=== PATIENT | female | born 1990 | race Hispanic/Latino ===

== ENCOUNTER 2019-12-03 04:41 | Inpatient (IN) | payer OTHER ==
[2019-12-03] MEDS ORDERED: Penicillin G Potassium 5 MILL.UNITS VIAL ONE (04:59)
[2019-12-03 05:23] VITALS: BMI 25.0
[2019-12-03] MEDS ORDERED: Acetaminophen 500 MG TAB PO PRN (05:28)
[2019-12-03] MEDS ORDERED: Ondansetron PF 4 MG/2 ML Vial IVP PRN ×2 (05:28→06:21)
[2019-12-03] MEDS ORDERED: Promethazine HCl 25 MG/ML VIAL IM PRN ×2 (05:28→06:21)
[2019-12-03] MEDS ORDERED: hydrALAZINE 20 MG/ML VIAL SLOW IVP PRN ×2 (05:28→12:37)
[2019-12-03] MEDS ORDERED: NS / Oxytocin 40 units/1000ml 1,000 ML IV PRN (05:28)
[2019-12-03] MEDS ORDERED: Butorphanol Tartrate 1 MG/ML VIAL SLOW IVP PRN (05:28)
[2019-12-03] MEDS ORDERED: Ibuprofen 800 MG TAB PO PRN (05:28)
[2019-12-03] MEDS ORDERED: Lidocaine 1% (PF) 30 ML VIAL SC PRN (05:28)
[2019-12-03] MEDS ORDERED: Misoprostol 200 MCG TAB PR PRN (05:28)
[2019-12-03] MEDS ORDERED: NS w/ Oxytocin 10 units 500 ML IV SCH (05:30)
[2019-12-03] MEDS ORDERED: Lactated Ringer's 1,000 ML IV SCH (05:30)
[2019-12-03] MEDS ORDERED: Fentanyl 4 mcg/Bup 0.1% Cadd 100 ML ONE (05:39)
[2019-12-03 05:40] LABS: Hemoglobin 11.9 g/dL (12.0-16.0); Mean Corpuscular HGB CONC 33.2 g/dL (32.0-36.0); Mean Corpuscular Hemoglobin 26.9 pg (27.0-31.0); Mean Corpuscular Volume 81.1 fL (78.0-98.0); Mean Platelet Volume 9.6 fL (7.4-10.4); Platelet Count 224 thou/uL (130-400); RBC Distribution Width 13.7 % (11.5-14.5); Red Blood Cell (RBC) Count 4.44 mill/uL (4.20-5.40); White Blood Cell (WBC) Count 12.1 thou/uL (4.8-10.8)
[2019-12-03] MEDS ORDERED: Fentanyl 100 MCG/2 ML VIAL ONE (05:40)
[2019-12-03] MEDS ORDERED: CEFAZOLIN 2 GM in Premix Bag 1 BAG IVPB SCH (05:45)
[2019-12-03 06:09] LABS: HIV (1/2) Antibody/Antigen Non-Reactive (NonReactive); HIV 1/2 INDEX 0.13 S/CO (<1.00)
[2019-12-03] MEDS ORDERED: EPHEDRINE 25 MG/5 ML SYRINGE SLOW IVP PRN (06:21)
[2019-12-03] MEDS ORDERED: Lactated Ringer's 500 ML IV PRN (06:21)
[2019-12-03] MEDS ORDERED: Naloxone HCl 0.4 mg/ml Vial IVP PRN ×2 (06:21)
[2019-12-03] MEDS ORDERED: diphenhydrAMINE 50 MG/ML VIAL IVP PRN (06:21)
[2019-12-03] MEDS ORDERED: Fentanyl 4 mcg/Bupivacaine 0.1% Cassette 100 ML EPIDURAL SCH (06:30)
[2019-12-03] MEDS ORDERED: Communication Order-Pharmacy FS SCH (06:30)
[2019-12-03 06:52] LABS: HBSAg Index 0.17 S/CO (0-0.99); Hep B Surf Ag Non-Reactive S/CO (NonReactive)
[2019-12-03 08:28] LABS: Syphilis Antibody Nonreactive (Nonreactive); Syphilis Antibody Index 0.02 S/CO (<1.00 Non-Reactive)
--- NOTE | 2019-12-03 09:29 | PDOC.OPDEL ---
OB Operative/Delivery Note Delivery Dr/Surgeon: Ozzy (resident), Deanna (attending, present during entire delivery) Pre-Delivery Diagnosis: active labor Procedure/Post Delivery Dx: spontaneous vaginal delivery Weeks gestation: 40 (40.1 wga) Anesthesia: epidural - Additional Findings/Plan Placenta delivered: spontaneous Repaired Obstetrical Laceration: 2nd degree Compilations/Other Findings: Procedure: Spontaneous Vaginal Delivery Anesthesia: epidural QBL: 85 ml Pre-op Diagnosis: 1. Term intrauterine in labor 2. Hx of episiotomy at last delivery Post-op Diagnosis: 1. Term intrauterine , delivered 2. Small 2nd degree perineal laceration, repaired 2. same as above Indications: A 29 y/o female presents in active labor Delivery Note: This is 29yo F @ 40.1 wks who delivered a viable F infant at 0901. Following an uneventful antepartum course, a vigorous female was delivered over an intact perineum in the occipitoanterior position. Anterior shoulder and then remainder of the body delivered. No nuchal cord. The head was held down; mouth and nares were bulb suctioned. Cord clamped after delayed cord clamping. Cord cut and cord blood collected. Placenta delivered intact in the Green presentation with a 3 vessel cord noted. Fundal massage was performed, and the fundus was firm. The cervix and vagina were inspected. A small 2nd degree perineal laceration was noted and repaired with 2-0 chromic in the usual fashion. Hemostatis and good approximation was noted. Infant went to mom for [id number] in good condition. Apgars were 9/9 at 1 & 5 minutes, respectively. Patient tolerated delivery well and went to after routine recovery/care. Post delivery plan: routine recovery Addendum - Attending - Attending Attestation Date/Time: 12/03/191918 I personally evaluated the patient and discussed the management with Dr. Preciado I agree with the History, Examination, Assessment and Plan documented above with any addition or exceptions noted below. I was present and supervising for the 2nd and third stages of labor.
[2019-12-03] MEDS ORDERED: Bupivacaine/Epinephrine 0.25% 30 ML VIAL ONE (09:38)
--- NOTE | 2019-12-03 10:11 | PDOC.LDHP ---
Labor and Delivery H&P Chief complaint: contractions, loss of fluid HPI: [address] Martin presents at 40.2 weeks with complaints of regular contractions and loss of fluid. States this occurred early this morning [employer]UD[employer]. Denies any complications with this . Has had 1 previous vaginal delivery that was uncomplicated in 2017. Current gestational age (weeks): 40 (2) Grav: 2 Para: 1 OB History Details: in 2017 Current complications: none Current medications: pre- vitamins Previous surgical history: other (oral surgery) Allergies/Adverse Reactions: Allergies Allergy/AdvReac Type Severity Reaction Status Date / Time penicillin G Allergy Intermediate Hives Verified 12/03/19 05:15 Social history: none - Physical Exam Vital signs reviewed and normal: yes General: breathing through contractions Heart: RRR Lungs: nonlabored breathing Abdomen: gravid Extremeties: no edema FHT: category 1, variability present Cutten contractions every: 2-3 - Vaginal Exam cm dilated: 7 Effacement: 100% Station: -1 - Assessment L&D Assessment: term patient in labor - Plan Plan: admit to L&D -: Admit to L&D for expectant management and delivery of term gestation in active labor. Discussed the above findings and plan with my attending, Dr. Liane Mendoza, who agrees. Kenton Saez PGY2 Addendum - Attending - Attending Attestation Date/Time: 12/06/19 0905 I personally evaluated the patient and discussed the management with Dr. Saez. I agree with the History, Examination, Assessment and Plan documented above.
[2019-12-03] MEDS ORDERED: Benzocaine-Menthol 82.5 ML CAN TOP PRN (12:37)
[2019-12-03] MEDS ORDERED: Misoprostol 200 MCG TAB VAG PRN (12:37)
[2019-12-03] MEDS ORDERED: Milk Of Magnesia 30 ML UDCUP PO PRN (12:37)
[2019-12-03] MEDS ORDERED: Lanolin Ointment 7 GM TUBE TOP PRN (12:37)
[2019-12-03] MEDS ORDERED: NS / Oxytocin 40 units/1000ml 1,000 ML IV SCH (12:37)
[2019-12-03] MEDS ORDERED: Bisacodyl 10 MG SUPP PR PRN (12:37)
[2019-12-03] MEDS ORDERED: diphenhydrAMINE 25 MG CAP PO PRN (12:37)
[2019-12-03] MEDS ORDERED: Preparation H Ointment 28 GM TUBE PR PRN (12:37)
[2019-12-03] MEDS ORDERED: Adacel (T-DAP) 0.5 ML SYRINGE IM ONE (12:37)
[2019-12-03] MEDS ORDERED: CEFAZOLIN 1 GM in Sodium Chloride 0.9% 100 ML IVPB SCH (14:00)
[2019-12-03] MEDS ORDERED: ceFAZolin 1 GM/D5W 1 GM in Premix Bag 1 BAG IVPB SCH (14:00)
[2019-12-03] MEDS: Ibuprofen 800 MG TAB PO SCH ×2 (15:11→23:04)
[2019-12-03] MEDS: Acetaminophen 325 MG TAB PO PRN (15:12)
[2019-12-03] MEDS: Ferrous Sulfate 325 MG TAB PO SCH (17:28)
[2019-12-03] MEDS: Docusate Calcium (SURFAK) 240 MG CAP PO SCH (23:04)
[2019-12-04] MEDS: Acetaminophen 325 MG TAB PO PRN (01:01)
[2019-12-04] MEDS: Ibuprofen 800 MG TAB PO SCH ×3 (05:47→22:23)
[2019-12-04] MEDS: Ferrous Sulfate 325 MG TAB PO SCH (07:08)
--- NOTE | 2019-12-04 08:24 | PRG ---
DATE OF SERVICE: 12/04/2019 PRIMARY OB: Adi Landry DO, MS. SUBJECTIVE: The patient is a 29-year-old female, G2, now P2, day 1, status post a term spontaneous vaginal delivery yesterday morning. The patient reports her baby will be under bili lights today. She otherwise is reporting good ambulation, decreased lochia, tolerating p.o., voiding on her own. PHYSICAL EXAMINATION: VITAL SIGNS: Blood pressure is 106/60, temperature 98.6, pulse of 90, respiratory rate of 16. GENERAL: She appears to be in no acute distress. She is alert, oriented, cooperative, pleasant to interact with. HEAD: Normocephalic, atraumatic. ABDOMEN: Fundus is firm at the umbilicus minus 2. EXTREMITIES: Nontender, nonedematous. ASSESSMENT AND PLAN: The patient is a 29-year-old female, day 1, status post an uncomplicated term spontaneous vaginal delivery. Anticipate discharge tomorrow as baby is under bili lights. Job ID: [id number]
[2019-12-04] MEDS: Prenatal Vitamin 1 TAB PO SCH (08:35)
[2019-12-04] MEDS: Docusate Calcium (SURFAK) 240 MG CAP PO SCH ×2 (08:35→22:23)
[2019-12-05] MEDS: Acetaminophen 325 MG TAB PO PRN (00:15)
[2019-12-05] MEDS: Ibuprofen 800 MG TAB PO SCH ×2 (05:33→14:47)
[2019-12-05] MEDS: Ferrous Sulfate 325 MG TAB PO SCH ×2 (08:02→16:47)
[2019-12-05] MEDS: Prenatal Vitamin 1 TAB PO SCH (09:03)
[2019-12-05] MEDS: Docusate Calcium (SURFAK) 240 MG CAP PO SCH (09:03)
[2019-12-05 11:01] VITALS: BP 113/65; TEMP 98
--- NOTE | 2019-12-05 11:54 | PDOC.PP ---
Post Progress Note Post Day #: 2 Subjective: doing well, would like to go home as soon as baby DC PO intake tolerated: yes Flatus: yes Ambulation: yes Vital Signs (12 hours) Temp Pulse Resp BP Pulse Ox 12/05/19 08:00 98.0 F 79 20 113/65 98 Weight Weight 141 lb - Physical Examination General: NAD Respiratory: non-labored breathing Abdominal: no distention Skin: no rash Neurological: no gross focal deficits Psychiatric: A&Ox3, normal affect Result Diagrams: 12/03/19 05:20 Additional Labs: Post Labs Blood Type O POSITIVE 12/03/19 05:20 Hep Bs Antigen Non-Reactive S/CO (NonReactive) 12/03/19 05:20 Rubella IgG Antibody 1.50 index (Immune >0.99) 12/03/19 05:20 (1) 39 weeks gestation of Code(s): Z3A.39 - 39 WEEKS GESTATION OF Status: Acute (2) Vaginal delivery Code(s): O80 - ENCOUNTER FOR FULL-TERM UNCOMPLICATED DELIVERY Status: Acute - Assessment/Plan PPD 2 doing well, plan for DC today.
== END 2019-12-05 18:25 | disposition home or self-care (01) | DRG 807 ==
LOC: L&D/OP 04:41 → L&D 05:41 → 3SW 12:26
PROVIDERS: ADMIT Obstetrics & Gynecology; ATTEND Obstetrics & Gynecology
PROC: 10E0XZZ Delivery of Products of Conception, External Approach (ICD-10-PCS; principal; 2019-12-03)
PROC: 0KQM0ZZ Repair Perineum Muscle, Open Approach (ICD-10-PCS; 2019-12-03)
DX: O70.1 Second degree perineal laceration during delivery (principal); Z37.0 Single live birth; Z3A.40 40 weeks gestation of pregnancy; Z88.0 Allergy status to penicillin
CPT/HCPCS: 36415; 51702; 85027; 86762; 86780; 86850; 86900; 86901; 87340; 87389; 99285; J0690; J2405; J2540; J3010